=== PATIENT | female | born 1975 | race Caucasian/White ===

== ENCOUNTER 2023-01-22 13:59 | Emergency (ER) | payer MEDICAID ==
[2023-01-22 14:07] VITALS: BP 141/102
[2023-01-22] MEDS ORDERED: CLINDAMYCIN 150 MG CAPSULE PO STA (14:13)
[2023-01-22] MEDS ORDERED: DOXEPIN 10 MG CAPSULE PO STA (14:13)
[2023-01-22] MEDS ORDERED: predniSONE 20 MG TABLET PO STA (14:13)
--- NOTE | 2023-01-22 14:14 | ED Physician Documentation ---
PD HPI WOUND RECHECK - Stated complaint Stated Complaint: SPIDER BITE/RASH - Chief complaint Chief Complaint: Wound - Histroy obtained from History obtained from: Patient - Additional information Additional information: 47-year-old woman with history of reflux and hypertension thinks she was bitten behind the right ear by a spider last night. She woke up this morning with a painful warm lesion behind the right ear and a diffuse itchy rash which Benadryl was not helpful for her. She denies throat or mouth swelling, shortness of breath or wheezing. PD PAST MEDICAL HISTORY - Present Medications Home Medications: Ambulatory Orders Medication Instructions Recorded Confirmed Doxepin [SINEquan] 10 mg PO TID PRN #20 cap 01/22/23 clindamycin HCL [Cleocin HCl] 300 mg PO QID #28 cap 01/22/23 predniSONE [Deltasone] 60 mg PO DAILY 5 Days #15 tablet 01/22/23 - Allergies Allergies/Adverse Reactions: Allergies Allergy/AdvReac Type Severity Reaction Status Date / Time pregabalin Allergy Rash Verified 01/22/23 14:07 PD ED PE NORMAL - Vitals Vital signs reviewed: Yes - General General: Alert and oriented X 3, No acute distress - HEENT HEENT: PERRL, EOMI, Other (There is a small area of what looks like cellulitis behind the right ear. No adenopathy. No purulence, fluctuance.) - Respiratory Respiratory: No respiratory distress, Clear bilaterally - Derm Derm: Other (Mild diffuse body wide hives) - Neuro Neuro: Alert and oriented X 3, Normal speech Results - Vitals Vitals: Vital Signs - 24 hr 01/22/23 01/22/23 14:04 14:12 Temperature 37.0 C Heart Rate 102 H Respiratory 18 18 Rate Blood Pressure 141/102 H O2 Saturation 99 Oxygen O2 Source Room air PD Medical Decision Making - ED course ED course: 47-year-old woman with possible cellulitis behind the right ear associated with some hives, treated for both with steroids, doxepin, and clindamycin. Departure - Departure Disposition: 01 Home, Self Care Clinical Impression: Cellulitis of scalp, Urticaria Condition: Good Record reviewed to determine appropriate education?: Yes Instructions: ED Staph Infec Abx Tx Only, ED Urticaria Prescriptions: clindamycin HCL [Cleocin HCl] 300 mg PO QID #28 cap predniSONE [Deltasone] 60 mg PO DAILY 5 Days #15 tablet Doxepin [SINEquan] 10 mg PO TID PRN #20 cap PRN Reason: Itching Comments: I sent your prescriptions electronically to [facility] in [place]. Return if you worsen or fail to improve over the next 2 to 3 days. Follow-up with your doctor for recheck next week.
== END 2023-01-22 14:35 | disposition home or self-care (01) ==
LOC: ED 13:59
DX: L03.811 Cellulitis of head [any part, except face] (principal); L50.9 Urticaria, unspecified; I10 Essential (primary) hypertension
CPT/HCPCS: 99283; A9270; J7512